=== PATIENT | male | born 1955 | race Caucasian/White ===

== ENCOUNTER → 2020-12-17 | Outpatient (REF) | payer OTHER | LOC: M LAB REF 09:13 | PROVIDERS: ATTEND Dermatology | DX: C44.329 Squamous cell carcinoma of skin of other parts of face (principal) | CPT/HCPCS: 14301; 15240; 88305; 88331; 88332; G0463 ==

== ENCOUNTER → 2025-01-22 | Outpatient (REF) | payer MEDICARE, OTHER | LOC: M SFHCDERM 17:35 | PROVIDERS: ATTEND Physician Assistant | DX: L57.0 Actinic keratosis (principal) ==